=== PATIENT | male | born 2000 | race Caucasian/White ===

== ENCOUNTER 2020-12-03 18:49 | Emergency (ER) | payer OTHER ==
[2020-12-03 18:58] VITALS: BP 140/79; TEMP 98.5; BMI 38.2
[2020-12-03 19:49] VITALS: PULSE 104
== END 2020-12-03 20:00 | disposition home or self-care (01) ==
LOC: JER 18:49 → JERFT 18:49
DX: H60.93 Unspecified otitis externa, bilateral (principal)
CPT/HCPCS: 93005; 93010; 99283-25

== ENCOUNTER 2021-10-23 07:26 | Emergency (ER) | payer OTHER ==
[2021-10-23 07:36] VITALS: BP 115/72; PULSE 98; TEMP 98; BMI 40.8
[2021-10-23] MEDS ORDERED: DEXAMETHASONE LIQUID 0.5 MG/5 ML PO ONE (08:04)
[2021-10-23] MEDS ORDERED: ACETAMINOPHEN 325 MG TABLET (FP) PO ONE (08:04)
[2021-10-23] MEDS ORDERED: DEXAMETHASONE SOD PHOSPHATE 10 MG/1 ML VIAL ONE (08:29)
[2021-10-23] MEDS ORDERED: ACETAMINOPHEN 500 MG TABLET (FP) ONE (08:30)
[2021-10-24 21:09] LABS: SARS-CoV-2 NAA Detected (Not Detected)
== END 2021-10-23 09:47 | disposition home or self-care (01) ==
LOC: JER 07:26
DX: J02.9 Acute pharyngitis, unspecified (principal)
CPT/HCPCS: 87070; 87804; 99283-25; C9803; U0003; U0005

== ENCOUNTER 2023-06-22 22:43 | Emergency (ER) | payer OTHER ==
[2023-06-22 22:50] VITALS: BP 129/77; PULSE 122; RESP 19; TEMP 99.5; BMI 38.7
[2023-06-22] MEDS ORDERED: ACETAMINOPHEN 500 MG TABLET (FP) PO ONE (23:21)
[2023-06-22] MEDS ORDERED: ACETAMINOPHEN 500 MG TABLET (FP) ONE (23:22)
== END 2023-06-22 23:50 | disposition home or self-care (01) ==
LOC: FER 22:43
DX: S60.221A Contusion of right hand, initial encounter (principal); M79.641 Pain in right hand; R22.31 Localized swelling, mass and lump, right upper limb; Y04.0XXA Assault by unarmed brawl or fight, initial encounter
CPT/HCPCS: 73130-TC-RT-FY; 73140-TC-RT-FY; 99283-25